=== PATIENT | male | born 1965 | race Caucasian/White ===

== ENCOUNTER 2023-05-01 17:25 | Emergency (ER) | payer OTHER, SELFPAY ==
[2023-05-01 17:27] VITALS: BP 170/95; PULSE 80; RESP 18; O2SAT 99; BMI 27.9
--- NOTE | 2023-05-01 17:47 | CT_ITS ---
The [address] [address] Patient Name: INOCENCIA ANDREWS MRN: [id number] date: 1965 Sex: M Assigned Patient Location: ER Current Patient Location: ER Accession/Order Number: [id number] Exam Date: 05/01/2023 16:20 Report Date: 05/01/2023 20:21 At the request of: NILDA YOUNGBLOOD Procedure: CT cervical spine wo con EXAM: CT cervical spine wo con HISTORY: fall pain COMPARISON: None. TECHNIQUE: Axial CT imaging is performed. Sagittal and coronal reformatted/reconstructed sequences were additionally performed. FINDINGS:IMPRESSION: Comminuted displaced fracture of the C6 spinous process (sagittal 35, coronal 35 and axial 60). Adjacent soft tissue edema. Cervical lordosis is maintained. No additional fracture, dislocation, subluxation or osseous lesion. Vertebral body heights and alignments are normal. No listhesis or vertebral body fracture. Age-related intervertebral disc space narrowing, endplate and uncovertebral arthrosis. Age-related facet arthrosis. The dens and lateral masses of C1 are symmetric. Findings discussed with Dr. Sweeney in the emergency department at the time of interpretation. Electronically authenticated by: ROSA MARIA DUNCAN Date: 05/01/2023 20:21
--- NOTE | 2023-05-01 17:47 | CT_ITS ---
The [address] [address] Patient Name: INOCENCIA ANDREWS MRN: [id number] date: 1965 Sex: M Assigned Patient Location: ER Current Patient Location: ER Accession/Order Number: [id number] Exam Date: 05/01/2023 16:20 Report Date: 05/01/2023 18:47 At the request of: NILDA YOUNGBLOOD Procedure: CT head/brain wo con EXAM: CT head/brain wo con HISTORY: fall COMPARISON: None. TECHNIQUE: Axial CT scans through the head were obtained without IV contrast administration. Dose reduction techniques were achieved by using: automated exposure control and/or adjustment of mA and /or kV according to patient size and/or use of iterative reconstruction technique. FINDINGS: There is no acute intracranial hemorrhage or abnormal extra-axial fluid collection. No mass effect or midline shift is seen. There is no evidence of large acute territorial infarction. There is no hydrocephalus. To the limit of CT, the posterior fossa appears unremarkable. The calvaria and extra cranial soft tissues are unremarkable. The visualized orbits show no abnormal mass. The visualized paranasal sinuses show no air-fluid level. Mastoid air cells are clear. CT/CT head/brain wo con IMPRESSION: No acute intracranial process. Electronically authenticated by: KELSEY TEMPLETON Date: 05/01/2023 18:47
[2023-05-01] MEDS: ADACEL DIPH,PERTUSS(ACELL),TET VAC/PF 0.5 ML ADULT SYRINGE IM (18:34)
--- NOTE | 2023-05-01 19:49 | ED_ITS ---
Documented by User: Darcie Lopez MD 05/01/23 19:53 HPI - Head Injury General Chief complaint: Head Injury Stated complaint: HEAD INJURY/NECK PAIN FALL Time Seen by Provider: 05/01/23 17:47 Source: patient Mode of arrival: walk-in Limitations: no limitations History of Present Illness HPI Narrative: Patient fell backwards while he was standing on some rocks hit the occipital region. He did not have any loss of consciousness. He denies any headache. He is complaining however of occipital pain and neck pain. Pain is worse to the occipital ridge, and C7. He denies any paresthesias, or weakness. He denies any visual disturbance, speech difficulty. He denies any nausea, vomiting, diarrhea, constipation, abdominal pain. Denies any chest pain, shortness of breath. He denies any other trauma. Tetanus shot is not up-to-date. Related Data Home Medications Medication Instructions Recorded Confirmed No Known Home Medications 05/01/23 05/01/23 Allergies Allergy/AdvReac Type Severity Reaction Status Date / Time No Known Drug Allergies Allergy Verified 05/01/23 17:33 Review of Systems ROS Status of ROS 10 or more systems reviewed and unremarkable except as noted in history and below Exam Narrative Exam Narrative: Nurses notes and vital signs reviewed and patient is not hypoxic. General: Nontoxic, Well-appearing and in no apparent distress. Skin: Warm, dry, no pallor noted. No Rash Head: Normocephalic, 4 cm laceration S-shaped to the occipital area, with minimal gaping. There is no hematoma, there are no step-offs. Neck: Supple, C-collar in place.tenderness to palpation to C6-C7 in the midline. There are no step-offs, no crepitance.. Eye: Pupils are equal, round and EOMI. No scleral icterus. Ears, Nose, Mouth, and Throat: TM clear, No hemotympanum, no posterior oropharynx erythema or nasal mucosal hypertrophy, uvula is mid-line Oral mucosa is moist Cardiovascular: Regular Rate and Rhythm without murmur, gallop or rub. Respiratory: No accessory muscle use or respiratory distress. Lungs are clear to auscultation, no wheezing, rales or rhonchi Chest Wall: no tenderness Back: No midline thoracic or lumbar vertebral tenderness. No CVA tenderness Musculoskeletal: normal ROM, no calf or popliteal tenderness, no lower extremity edema/swelling GI: Abdomen is soft, non-distended. Normal bowel sounds. No masses appreciated. No tenderness to palpation. No rebound, guarding, or rigidity noted. Neurological: A&O x4. No cranial nerve dysfunction observed. No truncal ataxia. Moves all extremities. Sensation intact. Psychiatric: Cooperative and interactive. Normal mood and affect. Constitutional Vital Signs, click to edit/add: Last Vital Signs Pulse 80 05/01/23 17:27 Resp 18 05/01/23 17:27 BP 170/95 H 05/01/23 17:27 Pulse Ox 99 05/01/23 17:27 O2 Del Method Room Air 05/01/23 17:27 Course Vital Signs Vital signs: Vital Signs Pulse Rate 80 05/01/23 17:27 Respiratory Rate 18 05/01/23 17:27 Blood Pressure 170/95 H 05/01/23 17:27 Pulse Oximetry 99 05/01/23 17:27 Oxygen Delivery Method Room Air 05/01/23 17:27 Pulse Rate 80 05/01/23 17:27 Respiratory Rate 18 05/01/23 17:27 Blood Pressure 170/95 H 05/01/23 17:27 Pulse Oximetry 99 05/01/23 17:27 Oxygen Delivery Method Room Air 05/01/23 17:27 MDM - Head Injury MDM Narrative Medical decision making narrative: Laceration repair. The patient was identified by me. Procedure risks and benefits were discussed with patient and/or family. Area was prepped and draped in a sterile fashion. LET applied, wound was inspected in full range of motion. Adequate anesthesia was obtained. 8 tre were used to obtain adequate closure The edges were well approximated. Antibiotic ointment was applied. Nonstick dressing was applied with pressure gauze. CT scan of the brain is unremarkable. Tetanus was updated. The patient is signed out at the end of my shift to Dr. rios awaiting CT scan of the cervical spine for disposition. Differential Diagnosis Differential diagnosis: Likely concussion without loss of consciousness, epidural hematoma, closed head injury, subarachnoid hematoma and subdural hematoma Discharge Plan Discharge Chief Complaint: Head Injury Clinical Impression: Laceration of occipital region of scalp, Neck pain Prescriptions / Home Meds: No Action No Known Home Medications Referrals: Physician,Non-Staff, MD [Primary Care Provider] - 1 week Documented by User: Billie Rios MD 05/01/23 22:16 HPI - Head Injury General Chief complaint: Head Injury Stated complaint: HEAD INJURY/NECK PAIN FALL Time Seen by Provider: 05/01/23 17:47 Related Data Home Medications Medication Instructions Recorded Confirmed No Known Home Medications 05/01/23 05/01/23 Allergies Allergy/AdvReac Type Severity Reaction Status Date / Time No Known Drug Allergies Allergy Verified 05/01/23 17:33 Exam Constitutional Vital Signs, click to edit/add: Last Vital Signs Pulse 80 05/01/23 17:27 Resp 18 05/01/23 17:27 BP 170/95 H 05/01/23 17:27 Pulse Ox 99 05/01/23 17:27 O2 Del Method Room Air 05/01/23 17:27 Course Vital Signs Vital signs: Vital Signs Pulse Rate 80 05/01/23 17:27 Respiratory Rate 18 05/01/23 17:27 Blood Pressure 170/95 H 05/01/23 17:27 Pulse Oximetry 99 05/01/23 17:27 Oxygen Delivery Method Room Air 05/01/23 17:27 Pulse Rate 80 05/01/23 17:27 Respiratory Rate 18 05/01/23 17:27 Blood Pressure 170/95 H 05/01/23 17:27 Pulse Oximetry 99 05/01/23 17:27 Oxygen Delivery Method Room Air 05/01/23 17:27 MDM - Head Injury MDM Narrative Medical decision making narrative: Laceration repair. The patient was identified by me. Procedure risks and benefits were discussed with patient and/or family. Area was prepped and draped in a sterile fashion. LET applied, wound was inspected in full range of motion. Adequate anesthesia was obtained. 8 tre were used to obtain adequate closure The edges were well approximated. Antibiotic ointment was applied. Nonstick dressing was applied with pressure gauze. CT scan of the brain is unremarkable. Tetanus was updated. The patient is signed out at the end of my shift to Dr. rios awaiting CT scan of the cervical spine for disposition. Dr Rios : CT head showed no acute pathology but the CT cervical spine shows C6 posterior spine comminuted fracture I spoke with Dr. Navarro in [facility] ,And the patient will be transferred to the facility for further evaluation and possible need for surgery the patient was accepted by Dr. Mckeon Discharge Plan Discharge Chief Complaint: Head Injury Clinical Impression: Laceration of occipital region of scalp, Neck pain Prescriptions / Home Meds: No Action No Known Home Medications Referrals: Physician,Non-Staff, MD [Primary Care Provider] - 1 week
[2023-05-01] MEDS: KETOROLAC TROMETHAMINE 30 MG/ML VIAL IM (21:13)
[2023-05-01 22:47] VITALS: BP 132/69; PULSE 62; RESP 16; O2SAT 100
== END 2023-05-01 22:59 | disposition short-term general hospital (02) ==
PROVIDERS: Emergency Provider Emergency Medicine
DX: S01.01XA Laceration without foreign body of scalp, initial encounter (principal); M54.2 Cervicalgia; W19.XXXA Unspecified fall, initial encounter; Z23 Encounter for immunization
CPT/HCPCS: 12002; 70450; 72125; 90471; 90715; 96372; 99285